=== PATIENT | male | born 1990 | race Two or more races ===

== ENCOUNTER → 2023-05-08 | Emergency (ER) | payer BC ==
[~2023-05-08] VITALS: Ht 172.7 cm; Wt 95.3 kg
== END | disposition left against medical advice (07) ==
LOC: ER 15:53
DX: Z53.21 Procedure and treatment not carried out due to patient leaving prior to being seen by health care provider (principal)

== ENCOUNTER 2023-05-09 06:07 | Emergency (ER) | payer BC ==
[~2023-05-09] VITALS: Ht 172.7 cm; Wt 95.3 kg
== END 2023-05-09 06:38 | disposition home or self-care (01) ==
LOC: ER 06:07
DX: H10.32 Unspecified acute conjunctivitis, left eye (principal)